=== PATIENT | female | born 1965 | race Caucasian/White ===

== ENCOUNTER → 2018-05-01 | Outpatient (CLI) | payer OTHER ==
--- NOTE | 2018-05-01 08:47 | CT ---
EXAMINATION TYPE: CT lumbar spine wo con DATE OF EXAM: 05/01/2018 COMPARISON: None HISTORY: Low back pain CT DLP: 668.[address] of the lumbar spine was performed. Bone and soft tissue window settings are submitted as well as coronal and sagittal reconstructions. There appears to be a transitional lumbar vertebral segment with partial lumbarization of S1 suspecte d with rudimentary S1-S2 disc. Prior to any scheduled intervention plain film radiograph correlation is advised. L1-L2: Normal disc space height. No disc herniation protrusion or central stenosis. No facet joint arthropathy. No evidence for foraminal encroachment. L2-L3: Normal disc space height. No disc herniation protrusion or central stenosis. No facet joint arthropathy. No evidence for foraminal encroachment. L3-L4: Normal disc space height. No disc herniation protrusion or central stenosis. No facet joint arthropathy. No evidence for foraminal encroachment. L4-L5: Moderate degenerative disc space narrowing. Grade 1 anterolisthesis L4 and L5 measuring 3.8 mm . Posterior disc bulge. Hypertrophy ligamentum flavum and facet joint arthropathy resulting in mild-t o-moderate central stenosis. L5-S1: Mild degenerative disc space narrowing. Moderate circumferential disc bulge. Effacement ventra l thecal sac. Mild central stenosis. Facet joint arthropathy. No paraspinal masses are identified. Lumbar segments are free of fracture. IMPRESSION: 1. Transitional vertebral segment. See above. 2. Joint change L4-5 and L5-S1 with disc bulging and central stenosis.
== END ==
LOC: MERGE 04-17 08:00 → RADCTMAIN 08:08
PROVIDERS: ATTEND Pediatrics
DX: M48.061 Spinal stenosis, lumbar region without neurogenic claudication (principal); M51.27 Other intervertebral disc displacement, lumbosacral region; M46.96 Unspecified inflammatory spondylopathy, lumbar region
CPT/HCPCS: 72131

== ENCOUNTER → 2018-10-11 | Outpatient (CLI) | payer OTHER ==
--- NOTE | 2018-10-11 19:05 | XR ---
Left shoulder HISTORY: Pain 3 views of the left shoulder Bone mineralization, joint spaces and alignment are maintained. IMPRESSION: No fracture or dislocation.
--- NOTE | 2018-10-11 19:06 | XR ---
Cervical spine HISTORY: Neck pain 6 views of the cervical spine Cervical vertebral bodies show preserved height, alignment, and bone mineralization. Prevertebral sof t tissues are normal. Mild spondylosis C5-6, C6-7 with mild loss of disc height. No significant debbie inal encroachment on oblique views. IMPRESSION: Mild degenerative disc disease. Consider cervical MRI.
== END | disposition home or self-care (01) ==
LOC: RADXRMAIN 17:31
PROVIDERS: ATTEND Pediatrics
DX: M25.512 Pain in left shoulder (principal); M50.30 Other cervical disc degeneration, unspecified cervical region
CPT/HCPCS: 72050

== ENCOUNTER → 2018-11-30 | Outpatient (CLI) | payer OTHER ==
--- NOTE | 2018-11-30 22:28 | MR ---
EXAMINATION TYPE: MR knee RT wo con DATE OF EXAM: 11/30/2018 COMPARISON: None HISTORY: Rt knee pain, fell on ice Apr 2018 TECHNIQUE: Multiplanar, multisequence images of the knee is performed without IV contrast. FINDINGS: MEDIAL MENISCUS: Anterior horn medial meniscus may be somewhat truncated. Acute tear to the anterior horn is not identified. LATERAL MENISCUS: Anterior and posterior horns are intact without tear. CRUCIATE LIGAMENTS: The anterior and posterior cruciate ligaments are intact and unremarkable. COLLATERAL LIGAMENTS: The medial collateral ligament and lateral collateral ligament complex are inta ct and unremarkable. EXTENSOR MECHANISM: Visualized quadriceps and patellar tendons are intact. EFFUSION: Minimal joint effusion is present. POPLITEAL CYST: There is a 2.4 x 6.5 cm fluid collection posterior to the knee compatible with a popl iteal cyst. TRICOMPARTMENT SPACES: Diffuse joint space narrowing is present. This greater on along the medial com partment in the lateral compartment. Patellofemoral joint space has some narrowing. CARTILAGE: There is diffuse thinning of the articular cartilage. There may be some loss of articular cartilage from the medial tibial plateau. Small amount of edema is present BONE MARROW SIGNAL: No focal abnormal marrow signal is appreciated. OTHER: No additional significant abnormality is appreciated. IMPRESSION: 1. Large popliteal cyst. 2. Minimal joint effusion. 3. Mild to moderate osteoarthritic degenerative change within the medial compartment. Milder osteoart hritic degenerative changes within the remaining portions of the knee. 4. Chronic degenerative changes through the anterior horn medial meniscus. Acute tears are not identi fied.
== END | disposition home or self-care (01) ==
LOC: RADMRIMAIN 20:37
PROVIDERS: ATTEND Internal Medicine Rheumatology
DX: M71.21 Synovial cyst of popliteal space [Baker], right knee (principal); M17.11 Unilateral primary osteoarthritis, right knee

== ENCOUNTER → 2024-05-23 | Outpatient (CLI) | payer MEDICARE ==
[2024-05-23 13:03] LABS: Appearance,Urine Clear (Clear); Bilirubin,Urine Negative (Negative); Blood,Urine Negative (Negative); Color,Urine Colorless; Glucose,Urine (UA) Negative (Negative); Ketones,Urine Negative (Negative); Leukocyte Esterase,Urine Negative (Negative); Nitrite,Urine Negative (Negative); PH, Urine 5.5 (5.0-8.0); Protein,Urine Negative (Negative); Specific Gravity,Urine 1.004 (1.001-1.035); Urobilinogen,Urine <2.0 mg/dL (<2.0)
[2024-05-23 13:14] LABS: Partial Thromboplastin Time 26.8 sec (22.0-30.0)
--- NOTE | 2024-05-23 13:14 | XR ---
EXAMINATION TYPE: XR chest 2V DATE OF EXAM: 05/23/2024 12:31 PM COMPARISON: None. CLINICAL INDICATION: Female, 58 years old with history of Z01.818, TECHNIQUE: XR chest 2V view(s) obtained. FINDINGS: The heart size is normal. The pulmonary vasculature is normal. The lungs are clear. IMPRESSION: 1. No acute pulmonary process. [facility], , 05/23/2024 1:12 PM
[2024-05-23 15:26] LABS: BUN/Creat Ratio 12.78 Ratio (12.00-20.00); Blood Urea Nitrogen 11.5 mg/dL (9.0-27.0); Calcium 9.9 mg/dL (8.7-10.3); Carbon Dioxide 29.1 mmol/L (21.6-31.8); Chloride 100 mmol/L (96-109); Glucose 78 mg/dL (70-110); Potassium 4.1 mmol/L (3.5-5.5); Sodium 140 mmol/L (135-145)
[2024-05-23 16:17] LABS: INR 0.9 (<1.2); Prothrombin Time 10.5 sec (10.0-12.5)
[2024-05-23 21:03] LABS: Eosinophils # (A) 0.06 X 10*3/uL (0.04-0.35); Eosinophils % (A) 0.6 %; HCT 42.4 % (37.2-46.3); HGB 13.3 g/dL (12.0-15.0); Lymphocytes # (A) 1.57 X 10*3/uL (0.90-5.00); MCH 30.3 pg (27.0-32.0); MCHC 31.4 g/dL (32.0-37.0); MCV 96.6 FL (80.0-97.0); Mean Platelet Volume 9.6 FL (9.5-12.2); Monocytes # (A) 0.99 X 10*3/uL (0.20-1.00); Monocytes % (A) 9.4 %; NRBC Per 100 WBC 0 X 10*3/uL (0.00-0.01); Neutrophils # (A) 7.68 X 10*3/uL (1.80-7.70); Neutrophils % (A) 73.2 %; Platelet Count 579 X 10*3/uL (140-440); RBC 4.39 X 10*6/uL (4.10-5.20); RDW 13.3 % (11.5-14.5); WBC 10.48 X 10*3/uL (4.50-10.00)
== END | disposition home or self-care (01) ==
LOC: LABPAT 11:52
PROVIDERS: ATTEND Orthopaedic Surgery Orthopaedic Surgery of the Spine
DX: Z01.818 Encounter for other preprocedural examination (principal); M48.00 Spinal stenosis, site unspecified; R94.31 Abnormal electrocardiogram [ECG] [EKG]; Z22.322 Carrier or suspected carrier of Methicillin resistant Staphylococcus aureus
CPT/HCPCS: 71046; 80048; 81003; 85025; 85610; 85730; 86850; 86900; 86901; 87070; 93005

== ENCOUNTER 2024-05-29 09:15 | Day surgery (SDC) | payer MEDICARE, OTHER ==
[2024-05-27 10:55] VITALS: BMI 29.7
[~2024-05-29 09:15] MED LIST: LIDOCAINE 1% (10MG/ML) FOR IV START INTRADERMA PRN
[2024-05-29] MEDS: IV FLUID CONTINUATION 1,000 ML IV ONE ×2 (09:49→09:50)
[2024-05-29] MEDS: LACTATED RINGERS 1,000 ML IV SCH (09:54)
[2024-05-29] MEDS: ONDANSETRON 4 MG/2 ML VIAL IVP ONE (09:54)
[2024-05-29] MEDS: MIDAZOLAM 2 MG/2 ML VIAL IV ONE (09:55)
[2024-05-29] MEDS: FAMOTIDINE 20 MG/2 ML VIAL IV STA (09:55)
[2024-05-29] MEDS: ceFAZolin 1,000 MG in SODIUM CHLORIDE 0.9% IRRIGATIO 1,000 ML IRRIGATION PRN ×2 (10:47→12:18)
[2024-05-29] MEDS: LIDOCAINE 1%-EPI 1:100,000 20 ML VIAL SQ ONE (11:14)
[2024-05-29] MEDS: THROMBIN (BOVINE) 5,000 UNIT VIAL TOPICAL ONE (11:15)
[2024-05-29] MEDS: LACTATED RINGERS 1,000 ML IV ONE ×2 (13:25→16:47)
[2024-05-29] MEDS: ceFAZolin 1,000 MG in SODIUM CHLORIDE 0.9% 1,000 ML IRRIGATION ONE (13:54)
--- NOTE | 2024-05-29 15:16 | XR ---
EXAMINATION TYPE: XR lumbar spine 2 or 3V, FL guidance operating room Intraoperative/procedural fluor oscopic services were provided. CLINICAL INDICATION:Female, 58 years old with history of L3-4/L4-5 Fusion; , [facility] FINDINGS: Postsurgical changes from L3 through L5 lumbar fusion. No radiographic evidence for complication. Total fluoroscopy time is 38 seconds. DAP: 72.320 Gycm2 uGym2 mGym2 Please see the operative/procedural note for further details. [facility], , 05/29/2024 3:13 PM
[2024-05-29] MEDS ORDERED: HYDROmorphone 0.5 MG/0.5 ML SYRINGE IVP PRN (15:23)
[2024-05-29] MEDS ORDERED: BENZOCAINE/MENTHOL LOZENG 1 EACH LOZENGE MUCOUS MEM PRN (15:23)
[2024-05-29] MEDS ORDERED: traMADol 50 MG TAB PO PRN ×2 (15:23→15:26)
[2024-05-29] MEDS ORDERED: SUMAtriptan succinate 50 MG TAB PO PRN (15:26)
[2024-05-29] MEDS ORDERED: HYDROcodone/APAP 5-325MG 1 EACH TAB PO PRN (15:26)
--- NOTE | 2024-05-29 15:31 | P.OP ---
Date of Procedure: 05/29/24 Preoperative Diagnosis: Severe spinal stenosis L3-4 L4-5, spondylolisthesis dynamic L3-4 L4-5, lower EXTR radiculopathy, low back pain, lower extremity weakness Postoperative Diagnosis: Same Anesthesia: GETA Pathology: none sent Condition: stable Disposition: PACU Description of Procedure: DESCRIPTION OF PROCEDURE(S): BRIEF OPERATIVE NOTE Preoperative Diagnosis: Severe spinal stenosis L3-4 L4-5, spondylolisthesis dynamic L3-4 L4-5, lower EXTR radiculopathy, low back pain, lower extremity weakness Postoperative Diagnosis: Same Procedure: Laminectomy and decompression L3-4 L4-[address] navigation aided Minimally invasive Posterior lateral decompression and facet fusion L3-4 L4-5 Minimally invasive Transforaminal lumbar interbody fusion for a 360 fusion L3-4 L4-5 Discectomy for decompression L3-4 L4-5 Placement of interbody graft L3-4 L4-5 Use of computer navigation for fusion Local autogenous bone grafting Aspiration of bone marrow from the vertebral body pedicle L4 on the right Use of bone graft extenders Surgeon: Dr. Pena [employer] Worker: Tello KMUAR who is present throughout the entire the case persistence during positioning, dissection, exposure, visualization, and all crucial elements of the case as well as closure. Anesthesia: General anesthesia per Dr. Roque Estimated blood loss: Approximately 400 mL, with blood given back through [employer] Complications: None apparent Components implanted: K2M Jaxon minimally invasive [place] pedicle screw system withscrews measuring 6.5 mm in diameter to rods two [place] interbody cages with 10 mL of osteo amp bio4 bone graft substitute and 30 mL of the BX bone fibers to supplement the local autogenous bone graft and bone marrow aspirate Disposition: To recovery room in good stable condition. OPERATIVE INDICATIONS The patient has had severe issues at their lower extremity in her lower back over the past several years with significant worsening over the past several months. Over the past few months the patient had pain at their back and their lower extremities. The patient is having severe radicular symptoms at their lower extremity with weakness. The patient is having significant pain in their back. They are unable to obtain any comfort. We did aggressive conservative treatment with medications therapy and interventional pain management however thery were not having any relief. The patient's imaging had significant findings which correlated well with her low back and lower extremity symptoms with severe spinal stenosis. The patient also showed evidence of a listhesis with some dynamic instability. The patient has been through conservative treatment. We discussed various treatment options including surgery, and the patient wishes to proceed with surgery We discussed the risk, patient's alternatives and benefits of surgery including but not limited to, risk of bleeding risk of infection, risk of need for further surgery, risk of decreased, loss of motion, muscle function, malunion nonunion, hardware failure, nerve damage, paralysis, heart attack, blindness and . They understood issues with the current pandemic and the possibility of exposure. For the sake of spinal numbering I labeled the L5 vertebrae as partially sacralized with a residual disc at L5-S1. This made the listhesis apparent at L3-4 and L4-5. OPERATIVE SUMMARY After discussing all the risks, patient alternatives and benefits at length, the patient elected to proceed with surgical intervention, signed informed consent, and presented for their procedure. The patient was seen and examined in the preoperative holding area and the surgical site was marked. The patient was given antibiotics and brought to the operating room. The patient was sedated and intubated by anesthesia in standard fashion. The patient was positioned on to the operating room table in a prone position on the appropriate frame which was well-padded and well molded. We were careful to pad any bony prominences and pressure points. We were careful to maintain the patient's cervical spine and good neutral alignment and position throughout. The patient was prepped and draped in a normal standard fashion. An appropriate timeout and keystone protocol performed. We were able to proceed with the surgery. The local wound area was infiltrated with local anesthetic. Over the right iliac crest I was able to make small stab incisions and establish a guidepin screw fixation to the iliac crest 2. I was able place the computer referencing device over the guidepins to establish an appropriate reference point for the Ziem CT navigation. We then were able to place patient in an appropriate drape and do a navigation spin for visualization and 3-D reconstruction of the lumbar spine. I was able utilize C-arm guidance and navigation to establish appropriate position over the pedicles bilaterally at the appropriate levels . With the appropriate levels confirmed was able to make small incisions over the appropriate pedicle sites bilaterally over L3, L4 and L5. Utilizing the computer navigation device I was able to establish bony landmarks at the right iliac crest for a bony reference point for the navigation device. I was able to establish a Jamshidi needle over the lateral aspect of the pedicle and advanced the trocar into the pedicle being careful not to breech superiorly inferiorly medially or laterally using computer navigation device. Position was confirmed regularly with AP and lateral images on C-arm and with the computer navigation device at the appropriate levels bilaterally. I was able to establish the trocar into the pedicle appropriately into the posterior aspect of the vertebral body bilaterally at the appropriate levels. This was done at each of the pedicle positions and each of the vertebrae. At the superior vertebrae I was able to take approximately 25 mL of bone aspiration for use later in the case to supplement the allograft and autograft bone. I was able place the guidewire into the trocar and into the vertebral body appropriately under C-arm guidance. Dissection was taken down over the wire to the appropriate starting position for the screw placed. The appropriate length screw was chosen, threaded over the guidewire and screwed appropriately into the pedicle and vertebral body under C-arm guidance in excellent alignment and position with good bony purchase. This is done at each of the screw sites at the appropriate levels at L3-L4-L5 bilaterally. With the screws intact I extended the incision to connect the screw hole sites on the most symptomatic side on the right. I dissected down to establish access over the pars and lamina to the base of the spinous process. I was able to expose the facet joint. The capsule the facet was taken down and showed some facet arthrosis at the joint. I was able to use a combination of curettes and Kerrison rongeurs and a high-speed drill to take down the facet joint and do a facetectomy. I was able get excellent foraminal decompression and central decompression with undermining across midline to perform a laminectomy centrally and contralaterally. I was able get good central decompression. The ligamentum flavum was taken down to further decompress centrally and at bilateral neural foramen. There had been severe central and foraminal stenosis at each of the levels and I was able to remedy this with the wide decompression at L3-4 and L4-5. I was able to expose the disc space and visualize the traversing nerve root. There is severe disc degeneration at each level. Note was made of some disc protrusion and disc herniation that was abutting the traversing nerve root at the level causing further compression of the nerve root. I was able to establish a annulotomy at the appropriate level protecting soft tissue and neural structures. Note was made of some disc desiccation at the disc. I performed a complete discectomy with accommodation of curettes and rasps and scrapers. I was able get good endplate preparation at the disc space. I sized for the appropriate size interbody spacer protecting the soft tissue and neural structures. The wound was copiously irrigated and suctioned dry. There is no evidence of any dural tear or leak. I was able to pack the disc space with local autogenous bone graft as well as a small amount of bone graft which was also placed into the interbody cage itself. Protecting the soft tissue structures and neural structures I was able place the interbody cage in good alignment and good position with good fit and fill at the interbody space. Position was confirmed with C-arm guidance. This was done first at L4-5 and then at L3-4 similarly. Good hemostasis maintained. There is no evidence of any dural tear or leak. The wound was irrigated and suctioned dry. With the hardware intact, intraoperative C-arm imaging was again taken which showed good alignment and position of the hardware at the appropriate levels at L3-4 and L4-5. We were then able to measure, contour and place the rods and appropriate hardware bilaterally. I was able to place capcrews, tighten them down, and torque them with the torque screwdriver appropriately. This gave good reduction of the listhesis at L3-4 and L4-5. With this intact I was able to place the local autogenous bone graft with additional bone graft enhancer as necessary into the posterior lateral gutters over the decorticated transverse processes and facet joints on the contralateral side. The remainder of the bone graft was placed over the facet joint on the contralateral side after taking down the facet joint capsule. With the bone graft intact, a stable construct, and good decompression at the appropriate levels, we were able to proceed with closure. Good hemostasis was maintained. There is no evidence of dural tear or leak. The fascia was closed for a watertight closure. he subcuticular tissue was closed with absorbable suture. The wound was cleaned and dried and dressed with the appropriate dressing. The drapes were broken down. The patient was gently rolled back onto their hospital bed being careful to maintain their cervical spine and good neutral alignment and position. They were woken up by anesthesia, extubated, and brought to the recovery room in good stable condition. The patient will be admitted to the hospital for appropriate postoperative care, medical management and monitoring. We will continue to follow them closely about the postoperative course.
[2024-05-29] MEDS: HYDROmorphone 0.5 MG/0.5 ML SYRINGE IVP PRN (15:47)
[2024-05-29] MEDS: ONDANSETRON 4 MG/2 ML VIAL IVP PRN (16:00)
[2024-05-29] MEDS: HYDROmorphone 1 MG/ML 1 ML SYRINGE IVP PRN (17:15)
[2024-05-29] MEDS: METOCLOPRAMIDE 5 MG/ML 2 ML VIAL IVP PRN (18:32)
[2024-05-29] MEDS: HYDROcodone/APAP 5-325MG 1 EACH TAB PO PRN (20:00)
[2024-05-29] MEDS: SUCRALFATE 1 GM TAB PO SCH (20:00)
[2024-05-29] MEDS: PROCHLORPERAZINE INJ 10 MG/2 ML VIAL IVP PRN (23:03)
[2024-05-29] MEDS: SODIUM CHLORIDE 0.9% 1,000 ML IV SCH (23:43)
[2024-05-30] MEDS: diazePAM 5 MG TAB PO PRN (06:13)
[2024-05-30 09:15] LABS: Blood Urea Nitrogen 5.2 mg/dL (9.0-27.0); Calcium 8.5 mg/dL (8.7-10.3); Carbon Dioxide 25.1 mmol/L (21.6-31.8); Chloride 96 mmol/L (96-109); Glucose 115 mg/dL (70-110); Potassium 3.7 mmol/L (3.5-5.5); Sodium 131 mmol/L (135-145)
[2024-05-30 09:19] LABS: HCT 32.3 % (37.2-46.3); MCH 31.7 pg (27.0-32.0); MCHC 34.1 g/dL (32.0-37.0); MCV 93.1 FL (80.0-97.0); Mean Platelet Volume 9.7 FL (9.5-12.2); NRBC Per 100 WBC 0 X 10*3/uL (0.00-0.01); Platelet Count 397 X 10*3/uL (140-440); RBC 3.47 X 10*6/uL (4.10-5.20); RDW 12.8 % (11.5-14.5); WBC 14.81 X 10*3/uL (4.50-10.00)
[2024-05-30] MEDS: SENNOSIDES-DOCUSATE SODIUM 1 EACH TAB PO SCH (09:21)
[2024-05-30] MEDS: CYCLOBENZAPRINE 10 MG TAB PO PRN (09:21)
[2024-05-30] MEDS: HYDROcodone/APAP 10-325MG 1 EACH TAB PO PRN (09:21)
[2024-05-30] MEDS: PANTOPRAZOLE 40 MG TABLET PO SCH (09:21)
[2024-05-30] MEDS: LORATADINE 10 MG TAB PO SCH (09:21)
[2024-05-30 11:22] LABS: Basophils # (A) 0.12 X 10*3/uL (0.00-0.10); Basophils % (A) 0.8 %; Eosinophils # (A) 0.06 X 10*3/uL (0.04-0.35); Eosinophils % (A) 0.4 %; Lymphocytes # (A) 1.05 X 10*3/uL (0.90-5.00); Lymphocytes % (A) 7.1 %; Monocytes # (A) 1.78 X 10*3/uL (0.20-1.00); Neutrophils # (A) 11.65 X 10*3/uL (1.80-7.70); Neutrophils % (A) 78.7 %
--- NOTE | 2024-05-30 14:59 | P.CONS ---
History of Present Illness - Reason for Consult Consult date: 05/30/24 - History of Present Illness History of present illness: 58-year-old female with past medical history significant for migraines, fibromyalgia, history of gastric ulcer, spinal stenosis who was following orthopedic spine as outpatient, for severe spinal stenosis, patient underwent laminectomy and decompression of L3-4 and L4-5. Internal medicine consulted for medical management. at bedside. Patient denied any fever, chills, sore throat, productive cough, chest pain, palpitation, shortness of breath, nausea vomiting diarrhea constipation abdominal pain dysuria urgency frequency weakness or numbness of extremities. Patient is afebrile, heart rate 87, respiratory rate 18, blood pressure 116/65, saturating 97% on 2 L. WBCs 14.8, likely reactive, hemoglobin 11.0. Platelet 397. Sodium 131 potassium 3.7 chloride 96 BUN 5.2 creatinine 0.8. Assessment and plan: Severe spinal stenosis: Status post L3-4, L4-5 laminectomy and decompression: Management per orthopedic DVT prophylaxis, perioperative antibiotics, pain control per primary Neurochecks Fall precaution PT/OT consult Bowel/bladder protocol Leukocytosis: No sign or symptom of infection Likely reactive Monitor CBC Anemia: Postoperative, no sign of central active bleed Monitor hemoglobin. History of migraines: Continue as needed sumatriptan DVT prophylaxis Per orthopedics. Monitor vital signs and labs Labs and medication were reviewed. Continue same treatment. Further recommendations as per clinical course of the patient PHYSICAL EXAMINATION: GENERAL: The patient is A&O x3, NAD HEENT: EOMI, Sclerae anicteric, Moist Mucous membranes Neck: Supple, Non tender, No JVD PULMONARY: Equal breath souds B/L, No wheezing, No crackles. CARDIOVASCULAR: S1, S2 present. No murmurs, rubs, or gallops. ABDOMEN: Soft, nontender, nondistended, normoactive bowel sounds. No guarding or rebound tenderness. MUSCULOSKELETAL: No edema, No cyanosis. No clubbing. Normal ROM. Intact peripheral pulses. DressingC/D/I NEUROLOGICAL: CN 2-12 grossly intact. No FND REVIEW OF SYSTEMS: CONSTITUTIONAL: No fever, no malaise, no fatigue. HEENT: No recent visual problems or hearing problems. Denied any sore throat. CARDIOVASCULAR: No chest pain, orthopnea, PND, no palpitations, no syncope. PULMONARY: No shortness of breath, no cough, no hemoptysis. GASTROINTESTINAL: No diarrhea, no nausea, no vomiting, no abdominal pain. NEUROLOGICAL: No headaches, no weakness, no numbness. HEMATOLOGICAL: Denies any bleeding or petechiae. GENITOURINARY: Denies any burning micturition, frequency, or urgency. MUSCULOSKELETAL/RHEUMATOLOGICAL: Denies any joint pain, swelling, or any muscle pain. ENDOCRINE: Denies any polyuria or polydipsia. The rest of the 14-point review of systems is negative. Dictation was produced using [employer] software. please excuse any grammatical, word or spelling errors. Past Medical History Past Medical History: Cancer, Fibromyalgia, GERD/Reflux, Neurologic Disorder, Osteoarthritis (OA) Additional Past Medical History / Comment(s): MIGRAINES. VARICOSE VEINS. SKIN CANCER History of Any Multi-Drug Resistant Organisms: None Reported Past Surgical History: Hysterectomy, Joint Replacement, Orthopedic Surgery, Tubal Ligation, Uterine Ablation Additional Past Surgical History / Comment(s): COLONOSCOPY WITH HEMORRHOID SURGERY, EGD, D & C. BILAT EYELID LIFT. BILAT TKA. BILAT CTR Past Anesthesia/Blood Transfusion Reactions: Postoperative Nausea & Vomiting (PONV) Past Psychological History: No Psychological Hx Reported Smoking Status: Never smoker Past Alcohol Use History: Occasional Past Drug Use History: None Reported - Past Family History Mother Family Medical History: Cancer Medications and Allergies Home Medications Medication Instructions Recorded Confirmed Type HYDROcodone/APAP 5-325MG [[place] 1 tab PO Q6HR PRN 05/27/24 05/29/24 History 5-325] Naproxen Sodium [Aleve] 220 mg PO DAILY 05/27/24 05/29/24 History Omeprazole 40 mg PO DAILY 05/27/24 05/29/24 History SUMAtriptan succinate 100 mg PO DIRECTED PRN 05/27/24 05/29/24 History Sucralfate [Carafate] 1 gm PO BID 05/27/24 05/29/24 History traMADol HCL 50 mg PO Q6H PRN 05/27/24 05/29/24 History Loratadine [Claritin] 10 mg PO DAILY 05/29/24 05/29/24 History Allergies Allergy/AdvReac Type Severity Reaction Status Date / Time No Known Allergies Allergy Verified 05/29/24 09:34 Physical Exam Vitals: Vital Signs Temp Pulse Pulse Resp BP Pulse Ox 05/30/24 07:10 98.5 F 87 18 116/65 97 05/30/24 02:00 98.3 F 83 16 144/77 98 05/29/24 19:15 97.5 F L 73 16 133/78 98 05/29/24 18:33 75 153/89 05/29/24 18:15 76 163/78 05/29/24 18:00 80 163/109 05/29/24 17:45 73 157/89 05/29/24 17:30 74 167/88 05/29/24 17:15 78 165/94 05/29/24 17:05 97.4 F L 76 18 146/79 99 05/29/24 16:30 68 16 133/70 99 05/29/24 16:16 65 16 136/69 99 05/29/24 16:00 72 16 118/56 99 05/29/24 15:44 72 16 138/62 99 05/29/24 15:28 97.3 F L 75 14 170/81 99 Intake and Output 05/29/24 05/30/24 05/30/24 22:59 06:59 14:59 Intake Total 0 Output Total 1700 1250 1700 Balance -1700 -1250 -1700 Intake: IV 0 Output: Urine 1300 1250 1700 Estimated Blood Loss 400 Other: Voiding Method Indwelling Catheter # Voids 1 Weight 76.7 kg Results CBC & Chem 7: 05/30/24 05:54 05/30/24 05:54 Labs: Abnormal Lab Results - Last 24 Hours (Table) 05/30/24 05/30/24 Range/Units 05:54 05:54 WBC 14.81 H (4.50-10.00) X 10*3/uL RBC 3.47 L (4.10-5.20) X 10*6/uL Hgb 11.0 L (12.0-15.0) g/dL Hct 32.3 L (37.2-46.3) % Immature Gran # 0.15 H (0.00-0.04) X 10*3/uL Neutrophils # 11.65 H (1.80-7.70) X 10*3/uL Monocytes # 1.78 H (0.20-1.00) X 10*3/uL Basophils # 0.12 H (0.00-0.10) X 10*3/uL Sodium 131 L (135-145) mmol/L BUN 5.2 L (9.0-27.0) mg/dL BUN/Creatinine Ratio 6.50 L (12.00-20.00) Ratio Glucose 115 H (70-110) mg/dL Calcium 8.5 L (8.7-10.3) mg/dL
--- NOTE | 2024-05-30 21:13 | P.PN ---
Progress Note - Text Progress Note Date: 05/30/24 Orthopedic Spine History of present illness: Patient is a pleasant 58-year-old female who is seen and examined at the bedside following posterior lateral decompression and fusion performed yesterday. Patient states they are doing ok post operatively. Her pain is adequately controlled with IV and oral medications. She does have some pain at the surgical sites at her lumbar spine. Most significantly, she is experiencing radiculopathy radiating down her right lower extremity. Currently does not complain of nausea, vomiting, fever, or chills. Patient states pain has been adequately controlled. Patient is eating without difficulty. Her Jung catheter remains intact. She has been able to bathe this morning. Physical Exam Lumbar Fusion: Status post surgical day number 1 Patient is awake, alert, and oriented 3 Vital signs stable Good chest excursion with deep inspiration and expiration Abdomen soft nontender Dorsiflexion, plantarflexion, and extensor hallucis longus positive sustained bilaterally No signs or symptoms of DVT; no calf pain; pneumatic cuffs intact bilateral lower extremities Optifoam dressings are clean, dry, and intact over the lumbar spine and right iliac crest; no erythema, purulence, or signs of infection Neurovascularly intact bilaterally lower extremities Jung Catheter intact Assessment: Status post L3-4 and L4-5 minimally invasive posterior lateral decompression and fusion with transforaminal lumbar interbody fusion Low back pain Right lower extremity radiculopathy L3-4 and L4-5 dynamic spondylolisthesis L3-4 and L4-5 severe spinal stenosis Lower extremity weakness Rheumatoid arthritis Fibromyalgia Plan: 1. Ambulate as tolerated; work with Physical Therapy to increase mobilization 2. Continue pain control with IV and oral medications; will plan to begin weaning the patient off of IV narcotic medication in anticipation for discharge home in the next 1-2 days 3. Dressings to remain intact with Optifoam; patient may shower with dressings intact 4. Medical management can continue to manage patient for patient's other medical diagnoses 5. Will plan to discontinue her Jung catheter today 6. We will continue to follow the patient closely; depending on the patient's progress, we may plan for discharge home as early as tomorrow, 05/31/2024 7. Patient can follow-up with Tello Childress PA-C or Dr. Juan Carlos Pena at [facility] in 2-3 weeks following discharge
[2024-05-31 09:09] VITALS: BP 137/79; PULSE 109; RESP 18; TEMP 98.6
--- NOTE | 2024-05-31 09:09 | P.DS ---
Providers Date of admission: 05/29/2024 Expected date of discharge: 05/31/24 Attending physician: Nickolas Pena Consults: 05/29/24 15:23 Consult Physician Routine Consulting Provider: Yifan Ackerman Consult Reason/Comments: Medical management Do you want consulting provider notified?: Yes Primary care physician: Kd Harris - Discharge Diagnosis(es) (1) Spondylolisthesis, lumbar region Current Visit: Yes Status: Acute (2) Lumbar stenosis Current Visit: Yes Status: Acute (3) Status post lumbar spinal fusion Current Visit: Yes Status: Acute (4) Low back pain Current Visit: Yes Status: Acute (5) Lumbar back pain with radiculopathy affecting right lower extremity Current Visit: Yes Status: Acute (6) Lower extremity weakness Current Visit: Yes Status: Acute (7) Fibromyalgia Current Visit: Yes Status: Acute (8) Rheumatoid arthritis Current Visit: Yes Status: Acute Hospital Course: This is a pleasant 58-year-old female who presented with Low back pain, Right lower extremity radiculopathy, L3-4 and L4-5 dynamic spondylolisthesis, L3-4 and L4-5 severe spinal stenosis, and Lower extremity weakness who failed outpatient conservative therapy. She admitted for L3-4 and L4-5 minimally invasive post erior lateral decompression and fusion with transforaminal lumbar interbody fusion. The patient tolerated the procedure well and did well postoperatively. She has been improving postoperatively. She does have some pain at the surgical sites which has been controlled with medication. She continues to have some right lower extremity radiculopathy but feels her pain is managed. She has been able to ambulate to the restroom multiple times independently without significant difficulty. She would like to be discharged home today. Condition on day of discharge stable. Patient will be discharged home. Patient was cleared preoperatively for surgery by Dr. Harris. Patient currently denies any nausea, vomiting, fever, or chills. Patient is eating and voiding freely without difficulty. Patient may shower Optifoam dressing intact. Patient may remove Optifoam dressing in 3 days and shower without a dressing at that time. Patient should refrain from driving until at least after their first follow-up appointment in the office. Patient should avoid excessive bending, lifting, and twisting; no lifting greater than 10 pounds. MAPS has been reviewed today, 05/31/2024, with an Overall Overdose Risk Score of 340. An "Opiod Start Talking" Form has been signed and placed in the patient's chart. A prescription has been written for hydrocodone 10 mg / 325 mg, 1 tab, every 4 hours, as needed for acute pain, dispense #42. Prescription also written for cyclobenzaprine 10 mg, 1 tab, 3 times daily, as needed for muscle spasm, dispense #60. Prescriptions are sent to the patient's pharmacy per request of the patient. Patient's other medical diagnoses include rheumatoid arthritis and fibromyalgia. Physical Exam on day of discharge: Patient is awake, alert, and oriented 3 Vital signs stable Good chest excursion with deep inspiration and expiration No signs or symptoms of DVT; no calf pain Extensor hallucis longus, plantarflexion, and dorsiflexion positive sustained bilateral lower extremities Incisions are clean, dry, and intact; no erythema, purulence, or signs of infection Optifoam dressing intact and are clean and dry Procedures: L3-4 and L4-5 minimally invasive posterior lateral decompression and fusion with transforaminal lumbar interbody fusion Patient Condition at Discharge: Stable Plan - Discharge Summary Discharge Rx Participant: Yes New Discharge Prescriptions: New Cyclobenzaprine [Flexeril] 10 mg PO TID PRN #60 tab PRN Reason: Muscle Spasm HYDROcodone/APAP 10-325MG [[place] 10] 1 each PO Q4H PRN #42 tab PRN Reason: Pain No Action SUMAtriptan succinate 100 mg PO DIRECTED PRN PRN Reason: Migraine Headache Omeprazole 40 mg PO DAILY Loratadine [Claritin] 10 mg PO DAILY traMADol HCL 50 mg PO Q6H PRN PRN Reason: Pain Sucralfate [Carafate] 1 gm PO BID Naproxen Sodium [Aleve] 220 mg PO DAILY HYDROcodone/APAP 5-325MG [[place] 5-325] 1 tab PO Q6HR PRN PRN Reason: Pain Discharge Medication List HYDROcodone/APAP 5-325MG [[place] 5-325] 1 tab PO Q6HR PRN 05/27/24 [History] Naproxen Sodium [Aleve] 220 mg PO DAILY 05/27/24 [History] Omeprazole 40 mg PO DAILY 05/27/24 [History] SUMAtriptan succinate 100 mg PO DIRECTED PRN 05/27/24 [History] Sucralfate [Carafate] 1 gm PO BID 05/27/24 [History] traMADol HCL 50 mg PO Q6H PRN 05/27/24 [History] Loratadine [Claritin] 10 mg PO DAILY 05/29/24 [History] Cyclobenzaprine [Flexeril] 10 mg PO TID PRN #60 tab 05/31/24 [Rx] HYDROcodone/APAP 10-325MG [[place] 10] 1 each PO Q4H PRN #42 tab 05/31/24 [Rx] Follow up Appointment(s)/Referral(s): Tello Childress, [place] [PHYSICIAN APPRENTICE] - 2 Weeks (Patient may follow-up with Tello Childress PA-C or Dr. Juan Carlos Pena at [facility] in 2-3 weeks following discharge. ) Activity/Diet/Wound Care/Special Instructions: 1. Patient may shower with Optifoam dressing intact. 2. Patient may remove Optifoam dressing in 3 days and shower without a dressing at that time. 3. Patient should refrain from driving until at least after their first follow- up appointment in the office. 4. Patient should avoid excessive bending, twisting, lifting; avoid overhead lifting; no lifting greater than 10 pounds 5. Take medications as prescribed 6. Patient should avoid anti-inflammatory medications over the next 6 weeks postoperatively 7. Do not soak in tub Discharge Disposition: HOME SELF-CARE
--- NOTE | 2024-05-31 13:12 | P.PN ---
Subjective Interval History: 58-year-old female with past medical history significant for migraines, fibromyalgia, history of gastric ulcer, spinal stenosis who was following orthopedic spine as outpatient, for severe spinal stenosis, patient underwent laminectomy and decompression of L3-4 and L4-5. Internal medicine consulted for medical management. at bedside. Patient denied any fever, chills, sore throat, productive cough, chest pain, palpitation, shortness of breath, nausea vomiting diarrhea constipation abdominal pain dysuria urgency frequency weakness or numbness of extremities. Patient is afebrile, heart rate 87, respiratory rate 18, blood pressure 116/65, saturating 97% on 2 L. WBCs 14.8, likely reactive, hemoglobin 11.0. Platelet 397. Sodium 131 potassium 3.7 chloride 96 BUN 5.2 creatinine 0.8. 05/31--patient was seen and examined today. No issues overnight. Pain is controlled. Afebrile, heart rate 109, respiratory rate 18, blood pressure 137/79, saturating 93% on room air. Assessment and plan: Severe spinal stenosis: Status post L3-4, L4-5 laminectomy and decompression: Management per orthopedic DVT prophylaxis, perioperative antibiotics, pain control per primary Neurochecks Fall precaution PT/OT consult Bowel/bladder protocol Leukocytosis: No sign or symptom of infection Likely reactive Anemia: Postoperative, no sign of central active bleed History of migraines: Continue as needed sumatriptan DVT prophylaxis Per orthopedics. PHYSICAL EXAMINATION: GENERAL: The patient is A&O x3, NAD HEENT: EOMI, Sclerae anicteric, Moist Mucous membranes Neck: Supple, Non tender, No JVD PULMONARY: Equal breath souds B/L, No wheezing, No crackles. CARDIOVASCULAR: S1, S2 present. No murmurs, rubs, or gallops. ABDOMEN: Soft, nontender, nondistended, normoactive bowel sounds. No guarding or rebound tenderness. MUSCULOSKELETAL: No edema, No cyanosis. No clubbing. Normal ROM. Intact perip heral pulses. Dressingclean dry intact. NEUROLOGICAL: CN 2-12 grossly intact. No FND Skin: No Rash REVIEW OF SYSTEMS: CONSTITUTIONAL: No fever or chills. CARDIOVASCULAR: No chest pain, palpitations or syncope. PULMONARY: No shortness of breath, no cough, sore throat. GASTROINTESTINAL: No nausea, vomiting, diarrhea, abdominal pain. : No Dysuria, urgency, frequency. Extremities: No edema. NEUROLOGICAL: No headaches, no weakness, or numbness Dictation was produced using [employer] dictation software. please excuse any grammatical, word or spelling errors. Objective - Vital Signs Vital signs: Vital Signs Temp 98.6 F 05/31/24 07:02 Pulse 109 H 05/31/24 07:02 Resp 18 05/31/24 07:02 BP 137/79 05/31/24 07:02 Pulse Ox 93 L 05/31/24 07:02 FiO2 Intake & Output 05/30/24 05/31/24 05/31/24 18:59 06:59 18:59 Output Total 2400 Balance -2400 Output: Urine 2400 Other: Voiding Method Toilet # Voids 3 3 - Labs CBC & Chem 7: 05/30/24 05:54 05/30/24 05:54
== END 2024-05-31 11:08 | disposition home or self-care (01) ==
LOC: OR 09:15 → 4SSUR 15:28 → OR 05-31 11:08
PROVIDERS: ATTEND Orthopaedic Surgery Orthopaedic Surgery of the Spine
DX: M54.16 Radiculopathy, lumbar region (principal); M48.061 Spinal stenosis, lumbar region without neurogenic claudication; M43.16 Spondylolisthesis, lumbar region; M06.9 Rheumatoid arthritis, unspecified; M79.7 Fibromyalgia; M51.369 Other intervertebral disc degeneration, lumbar region without mention of lumbar back pain or lower extremity pain
CPT/HCPCS: 97161; 86891; 80048; 85025; 72100; 22633; C1713 ×2; C1762; J2250; J0780 ×2; J2765; J0690 ×3; J2405 ×2; J3490; J1171 ×3